=== PATIENT | female | born 1970 | race Caucasian/White ===

== ENCOUNTER 2017-02-26 21:20 | Emergency (ER) | payer SELFPAY ==
--- NOTE | 2017-02-27 00:07 | ED ORDER SUMMARY ---
..... Patient: MAXIME December OrderSheet [facility] VisitID: [id number] [address] [place] [address] 46y, F Registration Date/Time: 02/26/2017 ORDER SHEET Weight: 68.0 kg (stated) Allergies: Sulfa Antibiotics GENERAL ORDERS: MEDICATION ORDERS: Hydrocodone-APAP PO 7.5/325 mg (NOW, HIGH ALERT MEDICATION) (22:31 02/26/2017 Tomas VENCES) (22:34 [facility] Lidocaine Injection 2 % (soln) (NOW, place at bedside) (22:32 02/26/2017 Tomas VENCES) (22:48 Lisette R.N.) IV FLUIDS: ORDER SHEET NOTES: [Electronically signed by Shasha Paula R.N. (00:56 02/27/2017)] [Electronically signed by Rc Miller MD (01:23 02/27/2017)] [Electronically locked/signed by Shasha Paula R.N. (00:56 02/27/2017)]
--- NOTE | 2017-02-27 00:07 | ED CLINICAL REPORT ---
Clinical Report - Physicians/Mid Levels [facility] [address] [place] [address] 02/26/2017 21:22 Patient: MAXIME December Time Seen: 22:05. Arrived- By private vehicle. Historian- patient. HISTORY OF PRESENT ILLNESS Chief Complaint: sore on vulva. This started several days ago and still present and worsening. It was gradual in onset and has been constant. (she has a sore area near her vulva that started as an ingrown hair.). REVIEW OF SYSTEMS No chills, fever, sweats, calf pain or chest pain. No cough, difficulty breathing, pedal edema, palpitations or abdominal pain. No constipation, diarrhea, nausea, vomiting or urinary problems. All systems otherwise negative, except as recorded above. PAST HISTORY Problems: Asthma. Additional Surgeries: Toe reattached. Trigger finger. Medications: Albuterol Sulfate Inhalation. Flonase Nasal. Laratidine. Allergies: Sulfa Antibiotics. SOCIAL HISTORY Never smoker. No alcohol use or drug use. FAMILY HISTORY She has family members that have had MRSA. ADDITIONAL NOTES The nursing notes have been reviewed. PHYSICAL EXAM Vital Signs: 02/26/2017 21:27 BP: 126/69. HR: 91. RR: 16. O2 saturation: 98%. Temp: 98.6 F. Pain level now: 5/10. Have been reviewed. Appearance: Alert. ENT: Pharynx normal. Neck: Neck supple. CVS: Heart sounds normal. Respiratory: Breath sounds normal. Abdomen: Soft and nontender. Bowel sounds normal. No organomegaly. No mass. Back: Normal external inspection. Skin: Single medium abscess with fluctuance and pointing (Extending from the lower part of her mons pubis on the right-hand side to just lateral of the labia majora). 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 Extremities: No lower extremity edema. PROGRESS AND PROCEDURES Incision & Drainage of Abscess: Time-out completed immediately before the procedure. The abscess is located in the labia. The risks of the procedure, benefits and alternatives were explained. Consent was obtained. Local anesthesia provided using 2% lidocaine no epi. Skin cleansed with Betadine. The abscess was incised with a #11 surgical blade. A moderate amount of pus was drained. Cavity was irrigated with saline and packed with gauze. Sample obtained for cultures. A dressing was applied. Course of Care: Patient is stable. Patient/family counseled. Old medical records ordered. Disposition: Discharged. Condition: stable. CLINICAL IMPRESSION Single deep abscess to the genitalia with incision and drainage. INSTRUCTIONS No driving or operating machinery while taking medication. Sedative medication was given during your visit. Drink plenty of fluids. Warnings: Further evaluation is necessary. GENERAL WARNINGS: Return or contact your physician immediately if your condition worsens or changes unexpectedly, if not improving as expected, or if other problems arise. Prescription Medications: Hydrocodone/APAP 5mg/325mg: take 1 to 2 orally every 6 hours as needed for pain. Dispense fifteen (15). No refills. Clindamycin 300 mg: take 1 capsule orally every 6 hours for 10 days. No refill. Understanding of the discharge instructions verbalized by patient. Follow-up with: Coco Chi MD, Family [facility], , [facility], [address] [place] [address] Follow up tomorrow. Call for an appointment. (Electronically signed by Rc Miller MD 02/27/2017 1:23)
--- NOTE | 2017-02-27 00:07 | ED CLINICAL REPORT ---
Clinical Report - Physicians/Mid Levels [facility] [address] [place] [address] 02/26/2017 21:22 Patient: MAXIME December Time Seen: 22:05. Arrived- By private vehicle. Historian- patient. HISTORY OF PRESENT ILLNESS Chief Complaint: sore on vulva. This started several days ago and still present and worsening. It was gradual in onset and has been constant. (she has a sore area near her vulva that started as an ingrown hair.). REVIEW OF SYSTEMS No chills, fever, sweats, calf pain or chest pain. No cough, difficulty breathing, pedal edema, palpitations or abdominal pain. No constipation, diarrhea, nausea, vomiting or urinary problems. All systems otherwise negative, except as recorded above. PAST HISTORY Problems: Asthma. Additional Surgeries: Toe reattached. Trigger finger. Medications: Albuterol Sulfate Inhalation. Flonase Nasal. Laratidine. Allergies: Sulfa Antibiotics. SOCIAL HISTORY Never smoker. No alcohol use or drug use. FAMILY HISTORY She has family members that have had MRSA. ADDITIONAL NOTES The nursing notes have been reviewed. PHYSICAL EXAM Vital Signs: 02/26/2017 21:27 BP: 126/69. HR: 91. RR: 16. O2 saturation: 98%. Temp: 98.6 F. Pain level now: 5/10. Have been reviewed. Appearance: Alert. ENT: Pharynx normal. Neck: Neck supple. CVS: Heart sounds normal. Respiratory: Breath sounds normal. Abdomen: Soft and nontender. Bowel sounds normal. No organomegaly. No mass. Back: Normal external inspection. Skin: Single medium abscess with fluctuance and pointing (Extending from the lower part of her mons pubis on the right-hand side to just lateral of the labia majora). 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 Extremities: No lower extremity edema. PROGRESS AND PROCEDURES Incision & Drainage of Abscess: Time-out completed immediately before the procedure. The abscess is located in the labia. The risks of the procedure, benefits and alternatives were explained. Consent was obtained. Local anesthesia provided using 2% lidocaine no epi. Skin cleansed with Betadine. The abscess was incised with a #11 surgical blade. A moderate amount of pus was drained. Cavity was irrigated with saline and packed with gauze. Sample obtained for cultures. A dressing was applied. Course of Care: Patient is stable. Patient/family counseled. Old medical records ordered. Disposition: Discharged. Condition: stable. CLINICAL IMPRESSION Single deep abscess to the genitalia with incision and drainage. INSTRUCTIONS No driving or operating machinery while taking medication. Sedative medication was given during your visit. Drink plenty of fluids. Warnings: Further evaluation is necessary. GENERAL WARNINGS: Return or contact your physician immediately if your condition worsens or changes unexpectedly, if not improving as expected, or if other problems arise. Prescription Medications: Hydrocodone/APAP 5mg/325mg: take 1 to 2 orally every 6 hours as needed for pain. Dispense fifteen (15). No refills. Clindamycin 300 mg: take 1 capsule orally every 6 hours for 10 days. No refill. Understanding of the discharge instructions verbalized by patient. Follow-up with: Coco Chi MD, Family [facility], , [facility], [address] [place] [address] Follow up tomorrow. Call for an appointment. (Electronically signed by Rc Miller MD 02/27/2017 1:23)
--- NOTE | 2017-02-27 00:07 | ED NURSING NOTES ---
Clinical Report - Nurses [facility] [address] [place] [address] 02/26/2017 21:22 Patient: NEO SWARTZ TRIAGE Triage time 21:Feb 26 2017. Acuity: LEVEL 3. Chief Complaint: VAGINAL LESIONS. Alert. No acute distress. ANGELI COMA SCORE: Angeli Coma Scale: 15- eyes open spontaneously (4); best verbal response- oriented x 4 (5); best motor response- obeys commands (6). --21:34 Lea Grider R.N. 21:27 02/26/17. BP: 126/69. HR: 91. RR: 16. O2 saturation: 98%. Temp: 98.6 F. Pain level now: 510. --21:34 Lea Grider R.N. Weight: 68 kg stated. Height/Length: 62 inches Per Patient. BMI: 27.4. --21:31 Lea Grider R.N. Medications Laratidine. --21:32 Lea Grider R.N. Albuterol Sulfate Inhalation. Flonase Nasal. --21:33 Lea Grider R.N. Allergies Sulfa Antibiotics. --21:33 Lea Grider R.N. History Arrived by private vehicle. Historian: patient. Accompanied by friend. Onset. (about 4 days). 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 PAST MEDICAL HX: Immunizations: status is unknown. SOCIAL HX: Never smoker. No alcohol use or drug use. No infectious disease exposure. SELF HARM ASSESSMENT: A self harm assessment was performed. The patient answered "no" to the question "Do you have thoughts of harming or killing yourself?" and "Have you recently had thoughts about harming or killing others?". FALL RISK ASSESSMENT: Fall risk assessment completed. No fall risk identified. NUTRITIONAL RISK ASSESSMENT: The nutritional risk assessment revealed no deficiencies. FUNCTIONAL ASSESSMENT: Functional assessment: no impairments noted. LEARNING NEEDS ASSESSMENT: The learning needs assessment revealed no barriers. ABUSE ASSESSMENT: Abuse assessment: The patient was asked "Do you feel safe in your home?". SKIN INTEGRITY ASSESSMENT: Skin integrity risk assessment completed. No skin integrity risk identified. --21:34 Lea Grider R.N. PROBLEMS: Asthma. --21:33 Lea Grider R.N. ADDITIONAL SURGERIES: Toe reattached. Trigger finger. --21:33 Lea Grider R.N. Interventions ID and allergy band on patient. To room. --21:34 Lea Grider R.N. PHYSICAL ASSESSMENT Ambulatory to room. GENERAL / NEURO / PSYCH: Alert. Oriented X 4. Appears in no acute distress. HEENT: Mucous membranes are pink. RESPIRATORY: Respirations not labored. CVS: Capillary refill less than 2 seconds. GI / : Abdomen soft and nontender. Tender genital lesions present (abcess). SKIN: Skin is warm and dry. --21:35 Lea Grider R.N. NURSING PROGRESS NOTES Patient gowned. Head of bed elevated. Patient identifiers checked. Call light placed in reach. Side rails up. Bed placed in lowest position. Brakes of bed on. --21:36 Lea Grider R.N. 22:34 02/26/2017 Hydrocodone-APAP (Hydrocodone-Acetaminophen) PO Oral Suspension 15 mL given. Allergies verified, confirmed 5 rights and sedative warning given to the patient. --22:34 Maryan Ball 22:48 02/26/2017 Lidocaine Injection 2 % given. --22:48 Lea Grider R.N. Care transferred and report given (Victorina PANDEY). --23:39 Lea Grider R.N. DISPOSITION / DISCHARGE 00:17 02/27/17. No learning barriers present. Discharge instructions provided and reviewed with the patient and family. Reviewed warnings. Reviewed medication(s). Treatments reviewed. Reviewed referrals. Activity restrictions reviewed. Patient and family verbalized understanding. Written instructions provided in Sami. The patient was discharged home and accompanied by family. She left the Emergency Department ambulatory and via private vehicle. Family member driving. --00:17 Shasha Paula R.N. 00:16 02/27/17. BP: 106/71. HR: 76. RR: 14. O2 saturation: 96%. Temp: deferred. Pain level now: 01/14. --00:17 Shasha Paula R.N. Locked/Released at 02/27/2017 0:56 by Shasha Paula R.N.
--- NOTE | 2017-02-27 00:07 | ED NURSING NOTES ---
Clinical Report - Nurses [facility] [address] [place] [address] 02/26/2017 21:22 Patient: NEO SWARTZ TRIAGE Triage time 21:Feb 26 2017. Acuity: LEVEL 3. Chief Complaint: VAGINAL LESIONS. Alert. No acute distress. ANGELI COMA SCORE: Angeli Coma Scale: 15- eyes open spontaneously (4); best verbal response- oriented x 4 (5); best motor response- obeys commands (6). --21:34 Lea Grider R.N. 21:27 02/26/17. BP: 126/69. HR: 91. RR: 16. O2 saturation: 98%. Temp: 98.6 F. Pain level now: 510. --21:34 Lea Grider R.N. Weight: 68 kg stated. Height/Length: 62 inches Per Patient. BMI: 27.4. --21:31 Lea Grider R.N. Medications Laratidine. --21:32 Lea Grider R.N. Albuterol Sulfate Inhalation. Flonase Nasal. --21:33 Lea Grider R.N. Allergies Sulfa Antibiotics. --21:33 Lea Grider R.N. History Arrived by private vehicle. Historian: patient. Accompanied by friend. Onset. (about 4 days). 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 PAST MEDICAL HX: Immunizations: status is unknown. SOCIAL HX: Never smoker. No alcohol use or drug use. No infectious disease exposure. SELF HARM ASSESSMENT: A self harm assessment was performed. The patient answered "no" to the question "Do you have thoughts of harming or killing yourself?" and "Have you recently had thoughts about harming or killing others?". FALL RISK ASSESSMENT: Fall risk assessment completed. No fall risk identified. NUTRITIONAL RISK ASSESSMENT: The nutritional risk assessment revealed no deficiencies. FUNCTIONAL ASSESSMENT: Functional assessment: no impairments noted. LEARNING NEEDS ASSESSMENT: The learning needs assessment revealed no barriers. ABUSE ASSESSMENT: Abuse assessment: The patient was asked "Do you feel safe in your home?". SKIN INTEGRITY ASSESSMENT: Skin integrity risk assessment completed. No skin integrity risk identified. --21:34 Lea Grider R.N. PROBLEMS: Asthma. --21:33 Lea Grider R.N. ADDITIONAL SURGERIES: Toe reattached. Trigger finger. --21:33 Lea Grider R.N. Interventions ID and allergy band on patient. To room. --21:34 Lea Grider R.N. PHYSICAL ASSESSMENT Ambulatory to room. GENERAL / NEURO / PSYCH: Alert. Oriented X 4. Appears in no acute distress. HEENT: Mucous membranes are pink. RESPIRATORY: Respirations not labored. CVS: Capillary refill less than 2 seconds. GI / : Abdomen soft and nontender. Tender genital lesions present (abcess). SKIN: Skin is warm and dry. --21:35 Lea Grider R.N. NURSING PROGRESS NOTES Patient gowned. Head of bed elevated. Patient identifiers checked. Call light placed in reach. Side rails up. Bed placed in lowest position. Brakes of bed on. --21:36 Lea Grider R.N. 22:34 02/26/2017 Hydrocodone-APAP (Hydrocodone-Acetaminophen) PO Oral Suspension 15 mL given. Allergies verified, confirmed 5 rights and sedative warning given to the patient. --22:34 Maryan Ball 22:48 02/26/2017 Lidocaine Injection 2 % given. --22:48 Lea Grider R.N. Care transferred and report given (Victorina PANDEY). --23:39 Lea Grider R.N. DISPOSITION / DISCHARGE 00:17 02/27/17. No learning barriers present. Discharge instructions provided and reviewed with the patient and family. Reviewed warnings. Reviewed medication(s). Treatments reviewed. Reviewed referrals. Activity restrictions reviewed. Patient and family verbalized understanding. Written instructions provided in Yoruba. The patient was discharged home and accompanied by family. She left the Emergency Department ambulatory and via private vehicle. Family member driving. --00:17 Shasha Paula R.N. 00:16 02/27/17. BP: 106/71. HR: 76. RR: 14. O2 saturation: 96%. Temp: deferred. Pain level now: 01/14. --00:17 Shasha Paula R.N. Locked/Released at 02/27/2017 0:56 by Shasha Paula R.N.
--- NOTE | 2017-02-27 00:07 | ED ORDER SUMMARY ---
..... Patient: MAXIME December OrderSheet [facility] VisitID: [id number] [address] [place] [address] 46y, F Registration Date/Time: 02/26/2017 ORDER SHEET Weight: 68.0 kg (stated) Allergies: Sulfa Antibiotics GENERAL ORDERS: MEDICATION ORDERS: Hydrocodone-APAP PO 7.5/325 mg (NOW, HIGH ALERT MEDICATION) (22:31 02/26/2017 Tomas VENCES) (22:[facility] [place] Lidocaine Injection 2 % (soln) (NOW, place at bedside) (22:32 02/26/2017 Tomas VENCES) (22:48 Lisette R.N.) IV FLUIDS: ORDER SHEET NOTES: [Electronically signed by Shasha Paula R.N. (00:56 02/27/2017)] [Electronically signed by Rc Miller MD (01:23 02/27/2017)] [Electronically locked/signed by Shasha Paula R.N. (00:56 02/27/2017)]
--- NOTE | 2017-02-27 01:23 | ED MAR SUMMARY ---
..... Medication Administration Record [facility] [address] [place] [address] Patient: NEO SWARTZ Visit ID: [id number] 46y, F Weight: 68.0 kg Height/Length: 62 in BMI: 27.4 ALLERGIES: Sulfa Antibiotics Given 22:34 02/26/2017 Maryan Ball, Medication Administered: HYDROCODONE-APAP [PO] (HYDROCODONE-ACETAMINOPHEN), Dose: 15 mL Oral Suspension PO. Medication Ordered: Hydrocodone-APAP PO 7.5/325 mg (NOW, HIGH ALERT MEDICATION). Given 22:48 02/26/2017 Lea Grider R.N. Medication Administered: LIDOCAINE [INJECTION], Dose: 2 % Injection. Medication Ordered: Lidocaine Injection 2 % (soln) (NOW, place at bedside).
--- NOTE | 2017-02-27 01:23 | ED DISCHARGE INSTRUCTIONS ---
Patient: MAXIME December General Instructions [facility] VisitID: [id number] [address] [place] [address] 46y, F Registration Date/Time: 02/26/2017 Single deep abscess to the genitalia with incision and drainage. INSTRUCTIONS No driving or operating machinery while taking medication. Sedative medication was given during your visit. Drink plenty of fluids. Warnings: Further evaluation is necessary. GENERAL WARNINGS: Return or contact your physician immediately if your condition worsens or changes unexpectedly, if not improving as expected, or if other problems arise. Prescription Medications: Hydrocodone/APAP 5mg/325mg: take 1 to 2 orally every 6 hours as needed for pain. Dispense fifteen (15). No refills. Clindamycin 300 mg: take 1 capsule orally every 6 hours for 10 days. No refill. Understanding of the discharge instructions verbalized by patient. Follow-up with: Coco Chi MD, [facility], , [facility], [address] [place] [address] Follow up tomorrow. Call for an appointment. ADDITIONAL INFORMATION Abscess [Incision & Drainage] An abscess (sometimes called a boil) occurs when bacteria get trapped under the skin and begin to grow. Pus forms inside the abscess as the body responds to the bacteria. An abscess can occur with an insect bite, ingrown hair, blocked oil gland, pimple, cyst, or puncture wound. Treatment of your abscess has required an incision to drain the pus. If the abscess pocket was large, a gauze packing may have been inserted. This will need to be removed and possibly replaced on your next visit. Antibiotics are not required in the treatment of a simple abscess, unless the infection is spreading into the skin around the wound (known as cellulitis). Healing of the wound will take about one to two weeks depending on the size of the abscess. Healthy tissue will grow from the bottom and sides of the opening until it seals over. Home Care: The wound may drain for the first two days. Cover the wound with a clean dry dressing. If the dressing becomes soaked with blood or pus, change it. If a gauze packing was placed inside the abscess cavity, you may be advised to remove it yourself. You may do this in the shower. Once the packing is removed, you should wash the area in the shower or bath 3 to 4 times a day, until the skin opening has closed. If you were prescribed antibiotics, take them as directed until they are all gone. You may use acetaminophen (Tylenol) or ibuprofen (Motrin, Advil) to control pain, unless another pain medicine was prescribed. [ NOTE: If you have liver disease or ever had a stomach ulcer, talk with your doctor before using these medicines.] Follow Up with your doctor as advised by our staff. If a gauze packing was inserted in your wound, it should be removed in 1-2 days. Check your wound every day for the signs of worsening infection listed below. Get Prompt Medical Attention if any of the following occur: Increasing redness or swelling Red streaks in the skin leading away from the wound Increasing local pain or swelling Continued pus draining from the wound two days after treatment Fever of 100.4F (38C) or higher, or as directed by your healthcare provider Hydrocodone Bitartrate, Acetaminophen Oral tablet What is this medicine? ACETAMINOPHEN; HYDROCODONE (a set a CHANTAL cielo fen; malinda droe KOE done) is a pain reliever. It is used to treat mild to moderate pain. How should I use this medicine? Take this medicine by mouth. Swallow it with a full glass of water. Follow the directions on the prescription label. If the medicine upsets your stomach, take the medicine with food or milk. Do not take more than you are told to take. Talk to your public health technician regarding the use of this medicine in children. This medicine is not approved for use in children. What side effects may I notice from receiving this medicine? Side effects that you should report to your doctor or health family day carer as soon as possible: allergic reactions like skin rash, itching or hives, swelling of the face, lips, or tongue breathing problems confusion feeling faint or lightheaded, falls stomach pain yellowing of the eyes or skin Side effects that usually do not require medical attention (report to your doctor or health family day carer if they continue or are bothersome): nausea, vomiting stomach upset What may interact with this medicine? alcohol antihistamines isoniazid medicines for depression, anxiety, or psychotic disturbances medicines for sleep muscle relaxants naltrexone narcotic medicines (opiates) for pain phenobarbital ritonavir tramadol What if I miss a dose? If you miss a dose, take it as soon as you can. If it is almost time for your next dose, take only that dose. Do not take double or extra doses. Where should I keep my medicine? Keep out of the reach of children. This medicine can be abused. Keep your medicine in a safe place to protect it from theft. Do not share this medicine with anyone. Selling or giving away this medicine is dangerous and against the law. Store at room temperature between 15 and 30 degrees C (59 and 86 degrees F). Protect from light. Keep container tightly closed. Throw away any unused medicine after the expiration date. Discard unused medicine and used packaging carefully. Pets and children can be harmed if they find used or lost packages. What should I tell my health care provider before I take this medicine? They need to know if you have any of these conditions: brain tumor Crohn's disease, inflammatory bowel disease, or ulcerative colitis drink more than 3 alcohol-containing drinks per day drug abuse or addiction head injury heart or circulation problems kidney disease or problems going to the bathroom liver disease lung disease, asthma, or breathing problems an unusual or allergic reaction to acetaminophen, hydrocodone, other opioid analgesics, other medicines, foods, dyes, or preservatives or trying to get breast-feeding What should I watch for while using this medicine? Tell your doctor or health family day carer if your pain does not go away, if it gets worse, or if you have new or a different type of pain. You may develop tolerance to the medicine. Tolerance means that you will need a higher dose of the medicine for pain relief. Tolerance is normal and is expected if you take the medicine for a long time. Do not suddenly stop taking your medicine because you may develop a severe reaction. Your body becomes used to the medicine. This does NOT mean you are addicted. Addiction is a behavior related to getting and using a drug for a non-medical reason. If you have pain, you have a medical reason to take pain medicine. Your doctor will tell you how much medicine to take. If your doctor wants you to stop the medicine, the dose will be slowly lowered over time to avoid any side effects. You may get drowsy or dizzy when you first start taking the medicine or change doses. Do not drive, use machinery, or do anything that may be dangerous until you know how the medicine affects you. Stand or sit up slowly. There are different types of narcotic medicines (opiates) for pain. If you take more than one type at the same time, you may have more side effects. Give your health care provider a list of all medicines you use. Your doctor will tell you how much medicine to take. Do not take more medicine than directed. Call emergency for help if you have problems breathing. The medicine will cause constipation. Try to have a bowel movement at least every 2 to 3 days. If you do not have a bowel movement for 3 days, call your doctor or health family day carer. Too much acetaminophen can be very dangerous. Do not take Tylenol (acetaminophen) or medicines that contain acetaminophen with this medicine. Many non-prescription medicines contain acetaminophen. Always read the labels carefully. Clindamycin Hydrochloride Oral capsule What is this medicine? CLINDAMYCIN (LJ Lara sin) is a lincosamide antibiotic. It is used to treat certain kinds of bacterial infections. It will not work for colds, flu, or other viral infections. How should I use this medicine? Take this medicine by mouth with a full glass of water. Follow the directions on the prescription label. You can take this medicine with food or on an empty stomach. If the medicine upsets your stomach, take it with food. Take your medicine at regular intervals. Do not take your medicine more often than directed. Take all of your medicine as directed even if you think your are better. Do not skip doses or stop your medicine early. Talk to your public health technician regarding the use of this medicine in children. Special care may be needed. What side effects may I notice from receiving this medicine? Side effects that you should report to your doctor or health family day carer as soon as possible: allergic reactions like skin rash, itching or hives, swelling of the face, lips, or tongue dark urine pain on swallowing redness, blistering, peeling or loosening of the skin, including inside the mouth unusual bleeding or bruising unusually weak or tired yellowing of eyes or skin Side effects that usually do not require medical attention (report to your doctor or health family day carer if they continue or are bothersome): diarrhea itching in the rectal or genital area joint pain nausea, vomiting stomach pain What may interact with this medicine? chloramphenicol erythromycin kaolin products What if I miss a dose? If you miss a dose, take it as soon as you can. If it is almost time for your next dose, take only that dose. Do not take double or extra doses. Where should I keep my medicine? Keep out of the reach of children. Store at room temperature between 20 and 25 degrees C (68 and 77 degrees F). Throw away any unused medicine after the expiration date. What should I tell my health care provider before I take this medicine? They need to know if you have any of these conditions: kidney disease liver disease stomach problems like colitis an unusual or allergic reaction to clindamycin, lincomycin, or other medicines, foods, dyes like tartrazine or preservatives or trying to get breast-feeding What should I watch for while using this medicine? Tell your doctor or healthcare professional if your symptoms do not start to get better or if they get worse. Do not treat diarrhea with over the counter products. Contact your doctor if you have diarrhea that lasts more than 2 days or if it is severe and watery. You have been given the following additional information: Abscess, Incision And Drainage Hydrocodone Bitartrate, Acetaminophen Oral tablet Clindamycin Hydrochloride Oral capsule No driving or operating machinery while taking medication. Sedative medication was given during your visit. (Electronically signed by Rc Miller MD 02/27/2017 1:23)
--- NOTE | 2017-02-27 01:23 | ED MAR SUMMARY ---
..... Medication Administration Record [facility] [address] [place] [address] Patient: NEO SWARTZ Visit ID: [id number] 46y, F Weight: 68.0 kg Height/Length: 62 in BMI: 27.4 ALLERGIES: Sulfa Antibiotics Given 22:34 02/26/2017 Maryan Ball, Medication Administered: HYDROCODONE-APAP [PO] (HYDROCODONE-ACETAMINOPHEN), Dose: 15 mL Oral Suspension PO. Medication Ordered: Hydrocodone-APAP PO 7.5/325 mg (NOW, HIGH ALERT MEDICATION). Given 22:48 02/26/2017 Lea Grider R.N. Medication Administered: LIDOCAINE [INJECTION], Dose: 2 % Injection. Medication Ordered: Lidocaine Injection 2 % (soln) (NOW, place at bedside).
--- NOTE | 2017-02-27 01:23 | ED DISCHARGE INSTRUCTIONS ---
Patient: MAXIME December General Instructions [facility] VisitID: [id number] [address] [place] [address] 46y, F Registration Date/Time: 02/26/2017 Single deep abscess to the genitalia with incision and drainage. INSTRUCTIONS No driving or operating machinery while taking medication. Sedative medication was given during your visit. Drink plenty of fluids. Warnings: Further evaluation is necessary. GENERAL WARNINGS: Return or contact your physician immediately if your condition worsens or changes unexpectedly, if not improving as expected, or if other problems arise. Prescription Medications: Hydrocodone/APAP 5mg/325mg: take 1 to 2 orally every 6 hours as needed for pain. Dispense fifteen (15). No refills. Clindamycin 300 mg: take 1 capsule orally every 6 hours for 10 days. No refill. Understanding of the discharge instructions verbalized by patient. Follow-up with: Coco Chi MD, [facility], , [facility], [address] [place] [address] Follow up tomorrow. Call for an appointment. ADDITIONAL INFORMATION Abscess [Incision & Drainage] An abscess (sometimes called a boil) occurs when bacteria get trapped under the skin and begin to grow. Pus forms inside the abscess as the body responds to the bacteria. An abscess can occur with an insect bite, ingrown hair, blocked oil gland, pimple, cyst, or puncture wound. Treatment of your abscess has required an incision to drain the pus. If the abscess pocket was large, a gauze packing may have been inserted. This will need to be removed and possibly replaced on your next visit. Antibiotics are not required in the treatment of a simple abscess, unless the infection is spreading into the skin around the wound (known as cellulitis). Healing of the wound will take about one to two weeks depending on the size of the abscess. Healthy tissue will grow from the bottom and sides of the opening until it seals over. Home Care: The wound may drain for the first two days. Cover the wound with a clean dry dressing. If the dressing becomes soaked with blood or pus, change it. If a gauze packing was placed inside the abscess cavity, you may be advised to remove it yourself. You may do this in the shower. Once the packing is removed, you should wash the area in the shower or bath 3 to 4 times a day, until the skin opening has closed. If you were prescribed antibiotics, take them as directed until they are all gone. You may use acetaminophen (Tylenol) or ibuprofen (Motrin, Advil) to control pain, unless another pain medicine was prescribed. [ NOTE: If you have liver disease or ever had a stomach ulcer, talk with your doctor before using these medicines.] Follow Up with your doctor as advised by our staff. If a gauze packing was inserted in your wound, it should be removed in 1-2 days. Check your wound every day for the signs of worsening infection listed below. Get Prompt Medical Attention if any of the following occur: Increasing redness or swelling Red streaks in the skin leading away from the wound Increasing local pain or swelling Continued pus draining from the wound two days after treatment Fever of 100.4F (38C) or higher, or as directed by your healthcare provider Hydrocodone Bitartrate, Acetaminophen Oral tablet What is this medicine? ACETAMINOPHEN; HYDROCODONE (a set a CHANTAL cielo fen; malinda droe KOE done) is a pain reliever. It is used to treat mild to moderate pain. How should I use this medicine? Take this medicine by mouth. Swallow it with a full glass of water. Follow the directions on the prescription label. If the medicine upsets your stomach, take the medicine with food or milk. Do not take more than you are told to take. Talk to your vice chancellor regarding the use of this medicine in children. This medicine is not approved for use in children. What side effects may I notice from receiving this medicine? Side effects that you should report to your doctor or health rn transitional care as soon as possible: allergic reactions like skin rash, itching or hives, swelling of the face, lips, or tongue breathing problems confusion feeling faint or lightheaded, falls stomach pain yellowing of the eyes or skin Side effects that usually do not require medical attention (report to your doctor or health rn transitional care if they continue or are bothersome): nausea, vomiting stomach upset What may interact with this medicine? alcohol antihistamines isoniazid medicines for depression, anxiety, or psychotic disturbances medicines for sleep muscle relaxants naltrexone narcotic medicines (opiates) for pain phenobarbital ritonavir tramadol What if I miss a dose? If you miss a dose, take it as soon as you can. If it is almost time for your next dose, take only that dose. Do not take double or extra doses. Where should I keep my medicine? Keep out of the reach of children. This medicine can be abused. Keep your medicine in a safe place to protect it from theft. Do not share this medicine with anyone. Selling or giving away this medicine is dangerous and against the law. Store at room temperature between 15 and 30 degrees C (59 and 86 degrees F). Protect from light. Keep container tightly closed. Throw away any unused medicine after the expiration date. Discard unused medicine and used packaging carefully. Pets and children can be harmed if they find used or lost packages. What should I tell my health care provider before I take this medicine? They need to know if you have any of these conditions: brain tumor Crohn's disease, inflammatory bowel disease, or ulcerative colitis drink more than 3 alcohol-containing drinks per day drug abuse or addiction head injury heart or circulation problems kidney disease or problems going to the bathroom liver disease lung disease, asthma, or breathing problems an unusual or allergic reaction to acetaminophen, hydrocodone, other opioid analgesics, other medicines, foods, dyes, or preservatives or trying to get breast-feeding What should I watch for while using this medicine? Tell your doctor or health rn transitional care if your pain does not go away, if it gets worse, or if you have new or a different type of pain. You may develop tolerance to the medicine. Tolerance means that you will need a higher dose of the medicine for pain relief. Tolerance is normal and is expected if you take the medicine for a long time. Do not suddenly stop taking your medicine because you may develop a severe reaction. Your body becomes used to the medicine. This does NOT mean you are addicted. Addiction is a behavior related to getting and using a drug for a non-medical reason. If you have pain, you have a medical reason to take pain medicine. Your doctor will tell you how much medicine to take. If your doctor wants you to stop the medicine, the dose will be slowly lowered over time to avoid any side effects. You may get drowsy or dizzy when you first start taking the medicine or change doses. Do not drive, use machinery, or do anything that may be dangerous until you know how the medicine affects you. Stand or sit up slowly. There are different types of narcotic medicines (opiates) for pain. If you take more than one type at the same time, you may have more side effects. Give your health care provider a list of all medicines you use. Your doctor will tell you how much medicine to take. Do not take more medicine than directed. Call emergency for help if you have problems breathing. The medicine will cause constipation. Try to have a bowel movement at least every 2 to 3 days. If you do not have a bowel movement for 3 days, call your doctor or health rn transitional care. Too much acetaminophen can be very dangerous. Do not take Tylenol (acetaminophen) or medicines that contain acetaminophen with this medicine. Many non-prescription medicines contain acetaminophen. Always read the labels carefully. Clindamycin Hydrochloride Oral capsule What is this medicine? CLINDAMYCIN (LJ Lara sin) is a lincosamide antibiotic. It is used to treat certain kinds of bacterial infections. It will not work for colds, flu, or other viral infections. How should I use this medicine? Take this medicine by mouth with a full glass of water. Follow the directions on the prescription label. You can take this medicine with food or on an empty stomach. If the medicine upsets your stomach, take it with food. Take your medicine at regular intervals. Do not take your medicine more often than directed. Take all of your medicine as directed even if you think your are better. Do not skip doses or stop your medicine early. Talk to your vice chancellor regarding the use of this medicine in children. Special care may be needed. What side effects may I notice from receiving this medicine? Side effects that you should report to your doctor or health rn transitional care as soon as possible: allergic reactions like skin rash, itching or hives, swelling of the face, lips, or tongue dark urine pain on swallowing redness, blistering, peeling or loosening of the skin, including inside the mouth unusual bleeding or bruising unusually weak or tired yellowing of eyes or skin Side effects that usually do not require medical attention (report to your doctor or health rn transitional care if they continue or are bothersome): diarrhea itching in the rectal or genital area joint pain nausea, vomiting stomach pain What may interact with this medicine? chloramphenicol erythromycin kaolin products What if I miss a dose? If you miss a dose, take it as soon as you can. If it is almost time for your next dose, take only that dose. Do not take double or extra doses. Where should I keep my medicine? Keep out of the reach of children. Store at room temperature between 20 and 25 degrees C (68 and 77 degrees F). Throw away any unused medicine after the expiration date. What should I tell my health care provider before I take this medicine? They need to know if you have any of these conditions: kidney disease liver disease stomach problems like colitis an unusual or allergic reaction to clindamycin, lincomycin, or other medicines, foods, dyes like tartrazine or preservatives or trying to get breast-feeding What should I watch for while using this medicine? Tell your doctor or healthcare professional if your symptoms do not start to get better or if they get worse. Do not treat diarrhea with over the counter products. Contact your doctor if you have diarrhea that lasts more than 2 days or if it is severe and watery. You have been given the following additional information: Abscess, Incision And Drainage Hydrocodone Bitartrate, Acetaminophen Oral tablet Clindamycin Hydrochloride Oral capsule No driving or operating machinery while taking medication. Sedative medication was given during your visit. (Electronically signed by Rc Miller MD 02/27/2017 1:23)
--- NOTE | 2017-02-27 01:23 | ED MED RECONCILIATION SUMMARY ---
Patient: MAXIME December Medication Reconciliation Report [facility] VisitID: [id number] [address] [place] [address] 46y, F Registration Date/Time: 02/26/2017 Weight: 68.0 kg Height/Length: 62 in. BMI: 27.4 ALLERGIES: Sulfa Antibiotics The patient's Home Medications are listed below: THE FOLLOWING MEDICATIONS NEED TO BE RECONCILED: Albuterol Sulfate Inhalation Flonase Nasal Laratidine The source(s) of the original Home Medication information: Not obtained. The following Medications were given to the patient in the Emergency Department: Hydrocodone-APAP [PO] PO 15 mL, administered: 02/26/2017 10:34:00 PM Lidocaine [Injection] Injection 2 %, administered: 02/26/2017 10:48:00 PM The following Medications were prescribed to the patient: Hydrocodone/APAP 5mg/325mg: take 1 to 2 orally every 6 hours as needed for pain. Dispense fifteen (15). No refills. -- Rc Miller MD Clindamycin 300 mg: take 1 capsule orally every 6 hours for 10 days. No refill. -- Rc Miller MD
--- NOTE | 2017-02-27 01:23 | ED MED RECONCILIATION SUMMARY ---
Patient: MAXIME December Medication Reconciliation Report [facility] VisitID: [id number] [address] [place] [address] 46y, F Registration Date/Time: 02/26/2017 Weight: 68.0 kg Height/Length: 62 in. BMI: 27.4 ALLERGIES: Sulfa Antibiotics The patient's Home Medications are listed below: THE FOLLOWING MEDICATIONS NEED TO BE RECONCILED: Albuterol Sulfate Inhalation Flonase Nasal Laratidine The source(s) of the original Home Medication information: Not obtained. The following Medications were given to the patient in the Emergency Department: Hydrocodone-APAP [PO] PO 15 mL, administered: 02/26/2017 10:34:00 PM Lidocaine [Injection] Injection 2 %, administered: 02/26/2017 10:48:00 PM The following Medications were prescribed to the patient: Hydrocodone/APAP 5mg/325mg: take 1 to 2 orally every 6 hours as needed for pain. Dispense fifteen (15). No refills. -- Rc Miller MD Clindamycin 300 mg: take 1 capsule orally every 6 hours for 10 days. No refill. -- Rc Miller MD
[2017-02-28] MEDS ORDERED: ALBUTEROL HFA60 DOSE IN (16:33)
[2017-02-28] MEDS ORDERED: CLEOCIN300 MG PO (16:35)
[2017-02-28] MEDS ORDERED: FLONASE AL50 MCG/ACT IN (16:36)
[2017-02-28] MEDS ORDERED: CLARITIN5 MG PO (16:37)
[2017-02-28] MEDS ORDERED: NORCO1 TA1 PO (16:38)
[2017-02-28] MEDS ORDERED: DIPHENHYDRAMINE25 M1 PO (16:39)
== END 2017-02-27 00:18 | disposition home or self-care (01) ==
LOC: ED SRH 21:20
DX: N76.4 Abscess of vulva (principal); Z79.899 Other long term (current) drug therapy; Z88.2 Allergy status to sulfonamides; J45.909 Unspecified asthma, uncomplicated

== ENCOUNTER 2017-02-28 10:05 | Observation (INO) | payer SELFPAY ==
[~2017-02-28] VITALS: Ht 157.5 cm; Wt 71.1 kg
--- NOTE | 2017-02-28 13:14 | ED NURSING NOTES ---
Clinical Report - Nurses [facility] [address] [place] [address] 02/28/2017 10:05 Patient: MAXIME December TRIAGE Triage time 10:16. Acuity: LEVEL 3. Chief Complaint: RECHECK OF WOUND. Alert. No acute distress. IAM COMA SCORE: Josephine Coma Scale: 15- eyes open spontaneously (4); best verbal response- oriented x 4 (5); best motor response- obeys commands (6). --10:21 Mindi De La Cruz R.N. 10:16 02/28/17. BP: 91/50. HR: 86. RR: 18. O2 saturation: 100%. Temp: 98.1 F (oral). Pain level now: 5/10. --10:21 Mindi De La Cruz R.N. Weight: 68 kg stated. Height/Length: 62 inches Per Patient. BMI: 27.4. --10:18 Mindi De La Cruz R.N. Medications Albuterol Sulfate Inhalation. Flonase Nasal. --10:17 Mindi De La Cruz R.N. Loratadine Oral. --10:17 Mindi De La Cruz R.N. Clindamycin HCl Oral 300 mg, 4x a day, started 02/26/17. --10:29 Mindi De La Cruz R.N. Vicodin Oral. --10:31 Mindi De La Cruz R.N. Medication/allergy information source: the patient. --10:21 Mindi De La Cruz R.N. Allergies Sulfa Antibiotics. --10:17 Mindi De La Cruz R.N. History Arrived by private vehicle. Historian: patient. Accompanied by friend. Primary physician (Arti). Location: (perineum). Previous treatment: Previously seen in ED two days ago. Incision and drainage of abscess performed. Antibiotic given in ED. PAST MEDICAL HX: Last normal menstrual period now. SOCIAL HX: Former smoker. No alcohol use or drug use. FALL RISK ASSESSMENT: Fall risk assessment completed. No fall risk identified. FUNCTIONAL ASSESSMENT: Functional assessment: no impairments noted. LEARNING NEEDS ASSESSMENT: The learning needs assessment revealed no barriers. --10:21 Mindi De La Cruz R.N. PROBLEMS: Abscess. Asthma. --10:18 Mindi De La Cruz R.N. ADDITIONAL SURGERIES: Toe reattached. Trigger finger. --10:18 Mindi De La Cruz R.N. Assessment GENERAL / NEURO / PSYCH: Alert. Oriented X 4. Appears in no acute distress. Patient appears calm and cooperative. RESPIRATORY: Respirations not labored. SKIN: Skin is warm and dry. --10:21 Mindi De La Cruz R.N. Interventions ID and allergy band on patient. To treatment room. --10:21 Mindi De La Cruz R.N. PHYSICAL ASSESSMENT 10:02/28/17. Ambulatory to room. Patient gowned. GENERAL / NEURO / PSYCH: The patient is awake and alert, is oriented and cooperative and appears uncomfortable. She has good eye contact. SKIN: Skin is warm and dry. --10:26 Mindi De La Cruz R.N. NURSING PROGRESS NOTES 10:02/28/17. Patient gowned. Call light placed in reach. Side rails up x 1. Bed placed in lowest position. Brakes of bed on. --10:26 Mindi De La Cruz R.N. 10:27 warm blanket and an ice pack given. --10:27 Mindi De La Cruz R.N. 11:56 02/28/2017 Site #1 started via IV in the left antecubital space with an 20g angiocath, with aseptic technique and good blood return; one attempt. Blood drawn: rainbow set. Labeled in the presence of the patient and sent to the lab. --11:56 Mindi De La Cruz R.N. 11:57 02/28/2017 Started bag #1 1000 mL IV Fluids IV NS (Saline); at 1000 mL/hr over 1 hour(s) via site #1 --11:57 Mindi De La Cruz R.N. 11:57 02/28/2017 Morphine IVP 4 mg given. via site #1. Allergies verified, confirmed 5 rights and sedative warning given to the patient. IV patency established. IV site checked: no pain, redness, or swelling. IV flushed thoroughly pre- and post-medication administration. IVP given by RN. --11:57 Mindi De La Cruz R.N. 12:19 02/28/17. Reassessment after medication administered. Overall patient status is improved- she states feels better. --12:20 Mindi De La Cruz R.N. 12:52 02/28/2017 Morphine IVP 4 mg given over 2 minute(s) via site #1. Allergies verified, confirmed 5 rights and sedative warning given to the patient. IV patency established. IV site checked: no pain, redness, or swelling. IV flushed thoroughly pre- and post-medication administration. IVP given by RN. --12:52 Mindi De La Cruz R.N. 14:57 02/28/17. BP: 104/68. HR: 76. RR: 18. O2 saturation: 98%. Temp: 98.6 F. Pain level now 8/10. --14:59 Crow Le R.N. 15:22 02/28/2017 Started 1 gm of Vancomycin IVPB in bag #1 200 mL; at 200 mL/hr over 1 hour(s) via site #1 via IV pump. Allergies verified and confirmed 5 rights. IV patency established. IV site checked: no pain, redness, or swelling. IV flushed thoroughly pre- and post-medication administration. --15:22 Crow Le R.N. DISPOSITION / DISCHARGE Departure time: 15:34 Feb 28 2017. Admitted to the Critical Care Unit (302). ( Report given to Sparkle VILLEGAS). --15:34 Crow Le R.N. 14:57 02/28/17. BP: 104/68. HR: 76. RR: 18. O2 saturation: 98%. Temp: 98.6 F. Pain level now 8/10. --15:34 Crow Le R.N. 13:38 02/28/2017 IV Fluids IV NS Discontinued: bag #1 infused. Total amount infused: 46275 mL. IV patency established. IV site checked: no pain, redness, or swelling. IV flushed thoroughly. --15:38 Crow Le R.N. 15:36 02/28/2017 Site #[address] upon transfer; patent. Converted to saline lock and flushed with 10 mL saline. --15:36 Crow Le R.N. 15:53 02/28/2017 Vancomycin IVPB Continued: upon transfer at the rate of 200 mL/hr. 190 mL remaining bag #1. IV patency established. IV site checked: no pain, redness, or swelling. IV flushed thoroughly. --15:53 Crow Le R.N. Departure time: 15:53 Feb 28 2017. --15:53 Crow Le R.N. Locked/Released at 02/28/2017 15:54 by Crow Le R.N.
--- NOTE | 2017-02-28 13:14 | ED ORDER SUMMARY ---
..... Patient: MAXIMEDecember OrderSheet [facility] VisitID: [id number] [place] [address] 46y, F Registration Date/Time: 02/28/2017 ORDER SHEET Weight: 68.0 kg (stated) Allergies: Sulfa Antibiotics GENERAL ORDERS: CBC w Diff Urgent (11:02/28/2017 Michele Bonds) (Ack 11:16 Chelo) (11:56 Fredi R.N.) CMP Urgent (11:02/28/2017 Michele Bonds) (Ack 11:16 Chelo) (11:56 Fredi R.N.) Blood Culture (Yes) (Clindamycin) Urgent (15:02/28/2017 Michele Bonds) (Ack 15:35 Chelo) (15:53 LWhalen R.N.) UA-Culture if indicated Urgent (15:02/28/2017 Michele Bonds) (Ack 15:35 Chelo) (15:53 LWhalen R.N.) Urine Urgent (15:02/28/2017 Michele Bonds) (Ack 15:35 Chelo) (15:53 LWhalen R.N.) MEDICATION ORDERS: IV FLUIDS: IV NS : initial bolus none -, then 1000 mL/hr for X1 (NOW) (11:12 02/28/2017 Michele Bonds) (Ack 11:32 Fredi R.N.) (11:57 Fredi R.N.) Morphine IV 4 mg (HIGH ALERT MEDICATION, NOW) (11:12 02/28/2017 Michele Bonds) (Ack 11:32 Fredi R.N.) (11:57 Fredi R.N.) Morphine IV 4 mg (HIGH ALERT MEDICATION, NOW) (12:29 02/28/2017 Michele Bonds) (Ack 12:44 Fredi R.N.) (12:52 Fredi R.N.) Vancomycin IV 1 gm/200mL (NOW) (14:58 02/28/2017 Michele Bonds) (15:22 LWhalen R.N.) ORDER SHEET NOTES: [Electronically signed by Crow Le R.N. (15:54 02/28/2017)] [Electronically signed by Edgar Chaudhari Dr. (15:56 02/28/2017)] [Electronically locked/signed by Crow Le R.N. (15:54 02/28/2017)]
--- NOTE | 2017-02-28 13:14 | ED ORDER SUMMARY ---
..... Patient: MAXIMEDecember OrderSheet [facility] VisitID: [id number] [place] [address] 46y, F Registration Date/Time: 02/28/2017 ORDER SHEET Weight: 68.0 kg (stated) Allergies: Sulfa Antibiotics GENERAL ORDERS: CBC w Diff Urgent (11:02/28/2017 Michele Bonds) (Ack 11:16 Chelo) (11:56 Fredi R.N.) CMP Urgent (11:02/28/2017 Michele Bonds) (Ack 11:16 Chelo) (11:56 Fredi R.N.) Blood Culture (Yes) (Clindamycin) Urgent (15:02/28/2017 Michele Bonds) (Ack 15:35 Chelo) (15:53 LWhalen R.N.) UA-Culture if indicated Urgent (15:02/28/2017 Michele Bonds) (Ack 15:35 Chelo) (15:53 LWhalen R.N.) Urine Urgent (15:02/28/2017 Michele Bonds) (Ack 15:35 Chelo) (15:53 LWhalen R.N.) MEDICATION ORDERS: IV FLUIDS: IV NS : initial bolus none -, then 1000 mL/hr for X1 (NOW) (11:12 02/28/2017 Michele Bonds) (Ack 11:32 Fredi R.N.) (11:57 Fredi R.N.) Morphine IV 4 mg (HIGH ALERT MEDICATION, NOW) (11:12 02/28/2017 Michele Bonds) (Ack 11:32 Fredi R.N.) (11:57 Fredi R.N.) Morphine IV 4 mg (HIGH ALERT MEDICATION, NOW) (12:29 02/28/2017 Michele Bonds) (Ack 12:44 Fredi R.N.) (12:52 Fredi R.N.) Vancomycin IV 1 gm/200mL (NOW) (14:58 02/28/2017 Michele Bonds) (15:22 LWhalen R.N.) ORDER SHEET NOTES: [Electronically signed by Crow Le R.N. (15:54 02/28/2017)] [Electronically signed by Edgar Chaudhari Dr. (15:56 02/28/2017)] [Electronically locked/signed by Crow Le R.N. (15:54 02/28/2017)]
--- NOTE | 2017-02-28 13:14 | ED CLINICAL REPORT ---
Clinical Report - Physicians/Mid Levels [facility] [address] [place] [address] 02/28/2017 10:05 Patient: MAXIME December Time Seen: 10:15; initial patient contact. CPT: ER phys charges level 5 (#[id number]). HISTORY OF PRESENT ILLNESS Chief Complaint: ABSCESS RECHECK. Treated in emergency department two days ago. Previous emergency department treatment: Incision and Drainage of abscess and prescription antibiotic given. No prescription given. The patient has experienced fever, chills and redness since the procedure was performed. (Was packed 2 days ago, worsening as far as induration, erythema, and pain). REVIEW OF SYSTEMS The patient has had fever. No nausea or vomiting. All systems otherwise negative, except as recorded above. PAST HISTORY Abscess. Asthma. SURGERIES: Toe reattached. Trigger finger. Medications: Vicodin Oral. Clindamycin HCl Oral 300 mg, 4x a day, started 02/26/17. Loratadine Oral. Albuterol Sulfate Inhalation. Flonase Nasal. Allergies: Sulfa Antibiotics. SOCIAL HISTORY Former smoker. No alcohol use or drug use. ADDITIONAL NOTES The nursing notes have been reviewed. PHYSICAL EXAM Vital Signs: 02/28/2017 10:16 BP: 91/50. HR: 86. RR: 18. O2 saturation: 100%. Temp: 98.1 F. Pain level now: 5/10. Have been reviewed. Hypotensive. Heart rate normal. Respiratory rate normal. Temperature normal. Oxygen saturation normal. Appearance: Alert. Oriented X3. No acute distress. Eyes: Pupils equal, round and reactive to light. ENT: Pharynx normal. Neck: Neck nontender. CVS: Heart sounds normal. Rate normal. Rhythm normal. Respiratory: No respiratory distress. Breath sounds normal. Abdomen: Soft and nontender. Skin: Erythema. Medium area of cellulitis with tenderness, erythema and warmth to the abdomen (Mons). Tenderness. Warmth. Moderate purulent drainage present. (8 cm induration). Neuro: Oriented X 3. LABS, X-RAYS, AND EKG Lt Knee X-ray: Moderate degenerative joint disease. Views: 2 view knee series. Technique: good. The X-rays were independently viewed by me and interpreted contemporaneously by me. Prior films were not available for comparison. PROGRESS AND PROCEDURES Discussed case with on-call health care provider, (Dr. Baugh, admit to hospitalist and will consult). Discussed case with hospitalist, (call returned 14:52 Dr. Lara, will see pt.). CLINICAL IMPRESSION Single deep abscess to the abdominal wall. INSTRUCTIONS Follow-up: Screening today revealed the patient's blood pressure to be in the normal range. (Electronically signed by Edgar Chaudhari Dr. 02/28/2017 15:56)
--- NOTE | 2017-02-28 13:14 | ED CLINICAL REPORT ---
Clinical Report - Physicians/Mid Levels [facility] [address] [place] [address] 02/28/2017 10:05 Patient: MAXIME December Time Seen: 10:15; initial patient contact. CPT: ER phys charges level 5 (#[id number]). HISTORY OF PRESENT ILLNESS Chief Complaint: ABSCESS RECHECK. Treated in emergency department two days ago. Previous emergency department treatment: Incision and Drainage of abscess and prescription antibiotic given. No prescription given. The patient has experienced fever, chills and redness since the procedure was performed. (Was packed 2 days ago, worsening as far as induration, erythema, and pain). REVIEW OF SYSTEMS The patient has had fever. No nausea or vomiting. All systems otherwise negative, except as recorded above. PAST HISTORY Abscess. Asthma. SURGERIES: Toe reattached. Trigger finger. Medications: Vicodin Oral. Clindamycin HCl Oral 300 mg, 4x a day, started 02/26/17. Loratadine Oral. Albuterol Sulfate Inhalation. Flonase Nasal. Allergies: Sulfa Antibiotics. SOCIAL HISTORY Former smoker. No alcohol use or drug use. ADDITIONAL NOTES The nursing notes have been reviewed. PHYSICAL EXAM Vital Signs: 02/28/2017 10:16 BP: 91/50. HR: 86. RR: 18. O2 saturation: 100%. Temp: 98.1 F. Pain level now: 5/10. Have been reviewed. Hypotensive. Heart rate normal. Respiratory rate normal. Temperature normal. Oxygen saturation normal. Appearance: Alert. Oriented X3. No acute distress. Eyes: Pupils equal, round and reactive to light. ENT: Pharynx normal. Neck: Neck nontender. CVS: Heart sounds normal. Rate normal. Rhythm normal. Respiratory: No respiratory distress. Breath sounds normal. Abdomen: Soft and nontender. Skin: Erythema. Medium area of cellulitis with tenderness, erythema and warmth to the abdomen (Mons). Tenderness. Warmth. Moderate purulent drainage present. (8 cm induration). Neuro: Oriented X 3. LABS, X-RAYS, AND EKG Lt Knee X-ray: Moderate degenerative joint disease. Views: 2 view knee series. Technique: good. The X-rays were independently viewed by me and interpreted contemporaneously by me. Prior films were not available for comparison. PROGRESS AND PROCEDURES Discussed case with on-call health care provider, (Dr. Baugh, admit to hospitalist and will consult). Discussed case with hospitalist, (call returned 14:52 Dr. Lara, will see pt.). CLINICAL IMPRESSION Single deep abscess to the abdominal wall. INSTRUCTIONS Follow-up: Screening today revealed the patient's blood pressure to be in the normal range. (Electronically signed by Edgar Chaudhari Dr. 02/28/2017 15:56)
--- NOTE | 2017-02-28 15:56 | ED MAR SUMMARY ---
..... Medication Administration Record [facility] [address] [place] [place] [address] Patient: NEO SWARTZ Visit ID: [id number] 46y, F Weight: 68.0 kg Height/Length: 62 in BMI: 27.4 ALLERGIES: Sulfa Antibiotics Start 11:57 02/28/2017 Mindi De La Cruz R.N., Stop 13:38 02/28/2017 Crow Le R.N. Medication Administered: IV NS (SALINE), Dose: IV Fluids over 1 hour(s), Rate: 1000 mL/hr, Dispensed: 1000 mL bag, Site: #1 left AC. Medication Ordered: IV NS : initial bolus none -, then 1000 mL/hr for X1 (NOW). Given 11:57 02/28/2017 Mindi De La Cruz R.N. Medication Administered: MORPHINE [IVP], Dose: 4 mg IVP, Site: #1 left AC. Medication Ordered: Morphine IV 4 mg (HIGH ALERT MEDICATION, NOW). Given 12:52 02/28/2017 Mindi De La Cruz R.N. Medication Administered: MORPHINE [IVP], Dose: 4 mg IVP over 2 minute(s), Site: #1 left AC. Medication Ordered: Morphine IV 4 mg (HIGH ALERT MEDICATION, NOW). Start 15:22 02/28/2017 Crow Le R.N., Continued Upon Transfer 15:53 02/28/2017 Crow Le R.N. Medication Administered: VANCOMYCIN [IVPB], Dose: 1 gm IVPB over 1 hour(s), Rate: 200 mL/hr, Dispensed: 200 mL bag, Site: #1 left AC. Medication Ordered: Vancomycin IV 1 gm/200mL (NOW).
--- NOTE | 2017-02-28 15:56 | ED MAR SUMMARY ---
..... Medication Administration Record [facility] [address] [place] [address] Patient: NEO SWARTZ Visit ID: [id number] 46y, F Weight: 68.0 kg Height/Length: 62 in BMI: 27.4 ALLERGIES: Sulfa Antibiotics Start 11:57 02/28/2017 Mindi De La Cruz R.N., Stop 13:38 02/28/2017 Crow Le R.N. Medication Administered: IV NS (SALINE), Dose: IV Fluids over 1 hour(s), Rate: 1000 mL/hr, Dispensed: 1000 mL bag, Site: #1 left AC. Medication Ordered: IV NS : initial bolus none -, then 1000 mL/hr for X1 (NOW). Given 11:57 02/28/2017 Mindi De La Cruz R.N. Medication Administered: MORPHINE [IVP], Dose: 4 mg IVP, Site: #1 left AC. Medication Ordered: Morphine IV 4 mg (HIGH ALERT MEDICATION, NOW). Given 12:52 02/28/2017 Mindi De La Cruz R.N. Medication Administered: MORPHINE [IVP], Dose: 4 mg IVP over 2 minute(s), Site: #1 left AC. Medication Ordered: Morphine IV 4 mg (HIGH ALERT MEDICATION, NOW). Start 15:22 02/28/2017 Crow Le R.N., Continued Upon Transfer 15:53 02/28/2017 Crow Le R.N. Medication Administered: VANCOMYCIN [IVPB], Dose: 1 gm IVPB over 1 hour(s), Rate: 200 mL/hr, Dispensed: 200 mL bag, Site: #1 left AC. Medication Ordered: Vancomycin IV 1 gm/200mL (NOW).
--- NOTE | 2017-02-28 15:56 | ED MED RECONCILIATION SUMMARY ---
Patient: MAXIME December Medication Reconciliation Report [facility] VisitID: [id number] [address] [place] [address] 46y, F Registration Date/Time: 02/28/2017 Weight: 68.0 kg Height/Length: 62 in. BMI: 27.4 ALLERGIES: Sulfa Antibiotics The patient's Home Medications are listed below: THE FOLLOWING MEDICATIONS NEED TO BE RECONCILED: Albuterol Sulfate Inhalation Clindamycin HCl Oral 300 mg, 4x a day Flonase Nasal Loratadine Oral Vicodin Oral The source(s) of the original Home Medication information: patient The following Medications were given to the patient in the Emergency Department: IV NS IV Fluids bolus 0, then 1000 mL/hr, administered: 02/28/2017 11:57:00 AM Morphine [IVP] IVP 4 mg, administered: 02/28/2017 11:57:00 AM Morphine [IVP] IVP 4 mg, administered: 02/28/2017 12:52:00 PM Vancomycin [IVPB] IVPB bolus 0, then 1 gm 200 mL/hr, administered: 02/28/2017 3:22:00 PM The following Medications were prescribed to the patient: None.
--- NOTE | 2017-02-28 15:56 | ED MED RECONCILIATION SUMMARY ---
Patient: MAXIME December Medication Reconciliation Report [facility] VisitID: [id number] [address] [place] [address] 46y, F Registration Date/Time: 02/28/2017 Weight: 68.0 kg Height/Length: 62 in. BMI: 27.4 ALLERGIES: Sulfa Antibiotics The patient's Home Medications are listed below: THE FOLLOWING MEDICATIONS NEED TO BE RECONCILED: Albuterol Sulfate Inhalation Clindamycin HCl Oral 300 mg, 4x a day Flonase Nasal Loratadine Oral Vicodin Oral The source(s) of the original Home Medication information: patient The following Medications were given to the patient in the Emergency Department: IV NS IV Fluids bolus 0, then 1000 mL/hr, administered: 02/28/2017 11:57:00 AM Morphine [IVP] IVP 4 mg, administered: 02/28/2017 11:57:00 AM Morphine [IVP] IVP 4 mg, administered: 02/28/2017 12:52:00 PM Vancomycin [IVPB] IVPB bolus 0, then 1 gm 200 mL/hr, administered: 02/28/2017 3:22:00 PM The following Medications were prescribed to the patient: None.
--- NOTE | 2017-02-28 15:56 | ED DISCHARGE INSTRUCTIONS ---
Patient: MAXIMEDecember General Instructions [facility] VisitID: [id number] [address] [place] [address] 46y, F Registration Date/Time: 02/28/2017 Single deep abscess to the abdominal wall. INSTRUCTIONS Follow-up: Screening today revealed the patient's blood pressure to be in the normal range. (Electronically signed by Edgar Chaudhari Dr. 02/28/2017 15:56)
--- NOTE | 2017-02-28 15:56 | ED DISCHARGE INSTRUCTIONS ---
Patient: MAXIMEDecember General Instructions [facility] VisitID: [id number] [address] [place] [address] 46y, F Registration Date/Time: 02/28/2017 Single deep abscess to the abdominal wall. INSTRUCTIONS Follow-up: Screening today revealed the patient's blood pressure to be in the normal range. (Electronically signed by Edgar Chaudhari Dr. 02/28/2017 15:56)
[2017-02-28 16:05] VITALS: BP 111/67
--- NOTE | 2017-02-28 16:11 | Progress Note ---
Subjective General Admission History and Physical Examination Admission status: ACU. Observation Patient Name: Daysi Mims Admission Date: 02/28/2017 Primary Care Provider: Coco Chi Attending Physician:Toro Lara M.D. Admitting Physician:Toro Lara MD Code Status: full Code Room: SUBJECTIVE Historian: Patient Reliability: Good Chief Complaint: Supra-pubic History of Present Illness: he patient is a 46-year-old white female with a significant past medical history of exercise-induced asthma. and general seasonal allergies, who presented to [facility] emergency department on the day of admission with continued complaints of pain in the suprapubic region related to previously treated abscess. She reports that overnight she had fevers, low-grade 99.7. She took naproxen 1 with reduction in her fever. Patient said ongoing complains of pain in the suprapubic region since Thursday02/23/2017. Patient states that on that day she noted a small papule in the suprapubic region. This was painful and red. Patient states that she was seen at the [facility] ED on the (02/26/17) when it began to worsen. Patient reported that the lesion was lanced and patient was placed on a oral antibiotic called clindamycin. The pain control was encouraged; patient started on hydrocodone/ acetaminophen. Patient today reported of worsening pain and swelling in the region. Patient has redness in the suprapubic region that extends to the pelvis and inner thigh. Patient also reports a worsening drainage from the original lesion that was treated more than 2 days ago. Patient was seen by [facility] ED who recommended patient be seen by general surgery and also admitted to hospitalist. Secondary to the above, the patient was admitted by Toro Lara M.D. for further evaluation and treatment. PAST MEDICAL HISTORY Illnesses: 1. Exercise-induced asthma 2. Seasonal allergies Allergies: 1. Sulfa drugs 2. Avocado eggs, bananas 2. Seasonal allergies to grass and pollens. Medications: 1. Currently started clindamycin 300 mg 4 times per day for recent abscess formation. 2. Hydrocodone acetaminophen 5 mg to 325 every 6 hours as needed. Surgery: 1. Trigger finger, April 2014 2. Sever toe on the left foot, which was repaired Injuries: 1. Left foot injury Hospitalizations: 1. None FAMILY HISTORY Parents: 1. Father, Sandro, age 61, living with thyroid disease, 2. Mother, Laura age 59; m living diabetic Siblings: 1. Agueda Mcallister age 42, Sundar age 40, Elsy age 38 Children: 1. 3 healthy children Andrew 19 lives at home Ronaldo Ochoa age 29 Janet Ochoa age 26 POA SOCIAL HISTORY 1. Marital Status: 2 years 2. Catholic: None 3. Education: High school 2 years college completed AA degree 4. 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 Tobacco: Smoking history 30 years, one half pack per day. Stop smoking. September,. 2. Drugs: None 3. Alcohol: None 4. Caffeine: None HEALTH SUPERVISION Item/Test 1. Vision screen: vision 2. Cholesterol Profile: chol 3. PSA: PSA 4. DOROTHEA: DOROTHEA 5. FOBT: FOBT 6. Blood Glucose: May 2015; [facility] 7. Colonoscopy: colonoscopy 8. History and physical exam: H&P 9. Audiogram: 2016 10. Mammogram: April 2015 [facility] 11. Pap/pelvic exam: April 2015 [facility] IMMUNIZATIONS: Unknown 1. Pneumococcal: Unknown 2. Influenza: Unknown 3. Tetanus: Unknown ADVANCED DIRECTIVES: 1. Living well: None 2. POLST: None 3. Code Status: FULL CODE STATUS 4. 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 Donor card: Donor card yes REVIEW OF SYSTEMS Remarkable for those things stated in the history of present illness and past medical history. ROS Constitutional Fever. Denies: Chills, Sweats. Eyes Denies: Vision Change. Respiratory Denies: SOB w/exertion. Cardiovascular Denies: Palpitations. Musculoskeletal Denies: Back Pain. Skin Other (abscess, suprapubic). Physical Exam Vital Signs / I&Os Vital Signs Date Time Temp Pulse Resp B/P Pulse O2 O2 Flow FiO2 Ox Delivery Rate 02/28 1605 98.4 66 16 111/67 100 Room Air General Appearance Oriented X3, Cooperative, No acute distress HEENT EOMI Lungs Clear to auscultation Cardiovascular Regular rate and rhythm, Normal S1 and S2 Abdomen Soft, No tenderness Extremities No clubbing, No edema Skin abscess, suprapubic with single exit point with drainage, pus. Tenderness around the mons pubis, fluctuance approximately 3 cm superior to the mons into the groin. Edematous changes Suprapubic. , LAB Results Laboratory Tests 02/28 02/28 1145 1145 Chemistry Plasma Sodium (136 - 145 mmol/L) 137 Plasma Potassium (3.5 - 5.1 mmol/L) 4.1 Plasma Chloride (98 - 107 mmol/L) 103 CO2 (Enzymatic) (21 - 32 mmol/L) 29 BUN (7 - 18 mg/dL) 14 Creatinine (0.6 - 1.3 mg/dL) 0.8 Est GFR ( Amer) (mL/min) >60 Est GFR (Non-Af Amer) (mL/min) >60 Glucose (70 - 110 mg/dL) 91 Plasma Calcium (8.5 - 10.1 mg/dL) 8.7 Total Bilirubin (0.0 - 1.0 mg/dL) 0.7 AST (15 - 37 U/L) 15 ALT (12 - 78 U/L) 18 Alkaline Phosphatase (46 - 116 U/L) 67 C-Reactive Protein Pending Total Protein (6.4 - 8.2 g/dL) 7.1 Albumin (3.3 - 5.0 g/dL) 3.4 Hematology WBC (4.5 - 11.5 K/uL) 8.5 RBC (4.00 - 5.20 M/uL) 3.96 Hgb (12.0 - 16.0 gm/dL) 12.1 Hct (36.0 - 46.0 %) 36.6 MCV (80 - 100 fL) 93 MCH (26 - 34 pg) 31 RDW (11.6 - 14.8 %) 13.2 Neut % (Auto) (50 - 75 %) 75.2 Lymph % (Auto) (25 - 40 %) 14.4 Real % (Auto) (3 - 14 %) 7.1 Eos % (Auto) (0 - 4 %) 2.7 Baso % (Auto) (0 - 2 %) 0.6 Plt Count, EDTA (150 - 400 K/uL) 284 PUBS MCHC (31 - 37 g/dL) 33 Microbiology Date/Time Procedure - Status Source Growth 02/28 1544 Blood Culture - RECD BLOOD 02/28 1543 Superficial Wound Culture - ORD DRAINAGE 02/28 1543 Gram Stain - ORD DRAINAGE 02/28 1543 Gram Stain - ORD MISC 02/28 1540 Blood Culture - RECD BLOOD 02/28 UNK MRSA Screen - ORD NASAL Assessment and Plan Problem List 1. Cellulitis Plan Abscess, suprapubic [place] outpatient therapy. Start patient on vancomycin every 6 hours. Blood cultures along with wound cultures. Consult general surgery for possible I&D. Warm compress, Appropriate wound care. 2. Abscess Plan Abscess, suprapubic with cellulitic changes around. Consult with general surgery as discussed above. Pain control Fluid hydration; normal saline at 150 cc an hour. Nothing by mouth until seen by general surgery. Other than that, can go ahead and eat general diet. Current status: Fair Anticipated discharge date: 24-48 hours Anticipated discharge placement: Home Patient care time: Time spent in chart review, patient interview, physical exam, CPOE, and care documentation: 60-70 minutes Visit to patient today: 1 Complexity of care: Mild E&M Codes Rounding: Obsv-Comp/Moderate/[id number]
--- NOTE | 2017-02-28 16:11 | Progress Note ---
Subjective General Admission History and Physical Examination Admission status: ACU. Observation Patient Name: Daysi Mims Admission Date: 02/28/2017 Primary Care Provider: Coco Chi Attending Physician:Toro Lara M.D. Admitting Physician:Toro Lara MD Code Status: full Code Room: SUBJECTIVE Historian: Patient Reliability: Good Chief Complaint: Supra-pubic History of Present Illness: he patient is a 46-year-old white female with a significant past medical history of exercise-induced asthma. and general seasonal allergies, who presented to [facility] emergency department on the day of admission with continued complaints of pain in the suprapubic region related to previously treated abscess. She reports that overnight she had fevers, low-grade 99.7. She took naproxen 1 with reduction in her fever. Patient said ongoing complains of pain in the suprapubic region since Thursday02/23/2017. Patient states that on that day she noted a small papule in the suprapubic region. This was painful and red. Patient states that she was seen at the [facility] ED on the (02/26/17) when it began to worsen. Patient reported that the lesion was lanced and patient was placed on a oral antibiotic called clindamycin. The pain control was encouraged; patient started on hydrocodone/ acetaminophen. Patient today reported of worsening pain and swelling in the region. Patient has redness in the suprapubic region that extends to the pelvis and inner thigh. Patient also reports a worsening drainage from the original lesion that was treated more than 2 days ago. Patient was seen by [facility] ED who recommended patient be seen by general surgery and also admitted to hospitalist. Secondary to the above, the patient was admitted by Toro Lara M.D. for further evaluation and treatment. PAST MEDICAL HISTORY Illnesses: 1. Exercise-induced asthma 2. Seasonal allergies Allergies: 1. Sulfa drugs 2. Avocado eggs, bananas 2. Seasonal allergies to grass and pollens. Medications: 1. Currently started clindamycin 300 mg 4 times per day for recent abscess formation. 2. Hydrocodone acetaminophen 5 mg to 325 every 6 hours as needed. Surgery: 1. Trigger finger, April 2014 2. Sever toe on the left foot, which was repaired Injuries: 1. Left foot injury Hospitalizations: 1. None FAMILY HISTORY Parents: 1. Father, Sandro, age 61, living with thyroid disease, 2. Mother, Laura age 59; m living diabetic Siblings: 1. Agueda Mcallister age 42, Sundar age 40, Elsy age 38 Children: 1. 3 healthy children Andrew 19 lives at home Ronaldo Ochoa age 29 Janet Ochoa age 26 POA SOCIAL HISTORY 1. Marital Status: 2 years 2. Christianity: None 3. 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 Tobacco: Smoking history 30 years, one half pack per day. Stop smoking. September,. 2. Drugs: None 3. Alcohol: None 4. Caffeine: None HEALTH SUPERVISION Item/Test 1. Vision screen: vision 2. Cholesterol Profile: chol 3. PSA: PSA 4. DOROTHEA: DOROTHEA 5. FOBT: FOBT 6. Blood Glucose: May 2015; [facility] 7. Colonoscopy: colonoscopy 8. History and physical exam: H&P 9. Audiogram: 2016 10. Mammogram: April 2015 [facility] 11. Pap/pelvic exam: April 2015 [facility] IMMUNIZATIONS: Unknown 1. Pneumococcal: Unknown 2. Influenza: Unknown 3. Tetanus: Unknown ADVANCED DIRECTIVES: 1. Living well: None 2. POLST: None 3. Code Status: FULL CODE STATUS 4. 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 Donor card: Donor card yes REVIEW OF SYSTEMS Remarkable for those things stated in the history of present illness and past medical history. ROS Constitutional Fever. Denies: Chills, Sweats. Eyes Denies: Vision Change. Respiratory Denies: SOB w/exertion. Cardiovascular Denies: Palpitations. Musculoskeletal Denies: Back Pain. Skin Other (abscess, suprapubic). Physical Exam Vital Signs / I&Os Vital Signs Date Time Temp Pulse Resp B/P Pulse O2 O2 Flow FiO2 Ox Delivery Rate 02/28 1605 98.4 66 16 111/67 100 Room Air General Appearance Oriented X3, Cooperative, No acute distress HEENT EOMI Lungs Clear to auscultation Cardiovascular Regular rate and rhythm, Normal S1 and S2 Abdomen Soft, No tenderness Extremities No clubbing, No edema Skin abscess, suprapubic with single exit point with drainage, pus. Tenderness around the mons pubis, fluctuance approximately 3 cm superior to the mons into the groin. Edematous changes Suprapubic. , LAB Results Laboratory Tests 02/28 02/28 1145 1145 Chemistry Plasma Sodium (136 - 145 mmol/L) 137 Plasma Potassium (3.5 - 5.1 mmol/L) 4.1 Plasma Chloride (98 - 107 mmol/L) 103 CO2 (Enzymatic) (21 - 32 mmol/L) 29 BUN (7 - 18 mg/dL) 14 Creatinine (0.6 - 1.3 mg/dL) 0.8 Est GFR ( Amer) (mL/min) >60 Est GFR (Non-Af Amer) (mL/min) >60 Glucose (70 - 110 mg/dL) 91 Plasma Calcium (8.5 - 10.1 mg/dL) 8.7 Total Bilirubin (0.0 - 1.0 mg/dL) 0.7 AST (15 - 37 U/L) 15 ALT (12 - 78 U/L) 18 Alkaline Phosphatase (46 - 116 U/L) 67 C-Reactive Protein Pending Total Protein (6.4 - 8.2 g/dL) 7.1 Albumin (3.3 - 5.0 g/dL) 3.4 Hematology WBC (4.5 - 11.5 K/uL) 8.5 RBC (4.00 - 5.20 M/uL) 3.96 Hgb (12.0 - 16.0 gm/dL) 12.1 Hct (36.0 - 46.0 %) 36.6 MCV (80 - 100 fL) 93 MCH (26 - 34 pg) 31 RDW (11.6 - 14.8 %) 13.2 Neut % (Auto) (50 - 75 %) 75.2 Lymph % (Auto) (25 - 40 %) 14.4 [place] % (Auto) (3 - 14 %) 7.1 Eos % (Auto) (0 - 4 %) 2.7 Baso % (Auto) (0 - 2 %) 0.6 Plt Count, EDTA (150 - 400 K/uL) 284 PUBS MCHC (31 - 37 g/dL) 33 Microbiology Date/Time Procedure - Status Source Growth 02/28 1544 Blood Culture - RECD BLOOD 02/28 1543 Superficial Wound Culture - ORD DRAINAGE 02/28 1543 Gram Stain - ORD DRAINAGE 02/28 1543 Gram Stain - ORD MISC 02/28 1540 Blood Culture - RECD BLOOD 02/28 UNK MRSA Screen - ORD NASAL Assessment and Plan Problem List 1. Cellulitis Plan Abscess, suprapubic [place] outpatient therapy. Start patient on vancomycin every 6 hours. Blood cultures along with wound cultures. Consult general surgery for possible I&D. Warm compress, Appropriate wound care. 2. Abscess Plan Abscess, suprapubic with cellulitic changes around. Consult with general surgery as discussed above. Pain control Fluid hydration; normal saline at 150 cc an hour. Nothing by mouth until seen by general surgery. Other than that, can go ahead and eat general diet. Current status: Fair Anticipated discharge date: 24-48 hours Anticipated discharge placement: Home Patient care time: Time spent in chart review, patient interview, physical exam, CPOE, and care documentation: 60-70 minutes Visit to patient today: 1 Complexity of care: Mild E&M Codes Rounding: Obsv-Comp/Moderate/[id number]
[2017-02-28] MEDS ORDERED: ALBUTEROL HFA60 DOSE IN (16:33)
[2017-02-28] MEDS ORDERED: CLEOCIN300 MG PO (16:35)
[2017-02-28] MEDS ORDERED: FLONASE AL50 MCG/ACT IN (16:36)
[2017-02-28] MEDS ORDERED: CLARITIN5 MG PO (16:37)
[2017-02-28] MEDS ORDERED: NORCO1 TA1 PO (16:38)
[2017-02-28] MEDS ORDERED: DIPHENHYDRAMINE25 M1 PO (16:39)
[2017-02-28 18:36] VITALS: BP 102/60
[2017-02-28 22:30] VITALS: BP 102/60
[2017-03-01 02:20] VITALS: BP 93/55
[2017-03-01 07:06] VITALS: BP 102/60
[2017-03-01 10:55] VITALS: BP 114/60
--- NOTE | 2017-03-01 13:53 | CONSULTATION REPORT ---
DATE OF CONSULTATION: 03/01/2017 REQUESTING PHYSICIAN: Ortega Guajardo MD CHIEF COMPLAINT: 1. Infection of pubic region HISTORY OF PRESENT ILLNESS: The patient is a 46-year-old woman who was seen in the emergency department 2 days previously with the finding of a small subcutaneous abscess and localized infection. She was treated with localized drainage and started on oral clindamycin 300 mg q.i.d. Following that emergency room visit, the patient presented again to the emergency room yesterday complaining of lack of response to treatment, in that she was still having hard swelling and pain at the side of the drainage. She was admitted for treatment with IV antibiotics. MEDICAL/SURGICAL HISTORY: Medical history of exertional asthma and seasonal allergies. Past surgery: Trigger finger surgery in 2013 and left toe injury, which was repaired in the past. MEDICATIONS: 1. Clindamycin. 2. Vicodin. ALLERGIES: 1. SULFA. 2. AVOCADO. 3. EGGS. 4. BANANAS. 5. GRASS. 6. POLLENS. SOCIAL HISTORY: The patient has 3 children, ages 19 through 29. The patient has been for about 2 years. 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 She smokes 1/2 pack per day, but quit smoking in 09/2015. Does not take drugs or alcohol. FAMILY HISTORY: Father is 61 with thyroid disease. Mother is 59 and a diabetic. REVIEW OF SYSTEMS: A multipoint review of systems was obtained on admission. The patient denies other unrelated complaints such as dyspnea, hemoptysis, gastrointestinal problems, vomiting, diarrhea, hematemesis, hematochezia, bone or joint problems, sinus, vision, hearing problems. She has had a previous colonoscopy. She received her preventive care at [facility] in [place]. PHYSICAL EXAMINATION: GENERAL: The patient was alert and cooperative. VITAL SIGNS: Temperature 98.4, respirations 20, pulse rate of 86, blood pressure 114/60, room air sat 100%. HEENT: Ears and nose without gross external lesions. Eyes are equal, anicteric. NECK: Without thyromegaly or bruit. CHEST: Clear to auscultation. HEART: Regular, without murmur. ABDOMEN: Nontender. EXTREMITIES: Symmetric, and she moves without restriction. SKIN: On the lower mons area, there is a small incision which is currently not draining much. It has a little bit of crust on it. There is no palpable fluctuance. There is some induration extending about 1 cm or 2 from this incision. This area is tender to her. There is no crepitus. There is no erythema overlying. LAB/IMAGING: The lab tests on admission showed a white count of 8.5, and today it is 7.4; hemoglobin and hematocrit today of 10.4 and 31.5. The chemistries are normal, with a slightly low chloride and a slightly low calcium. C-reactive protein was elevated at 4.6. Urinalysis was negative. test was negative. Review of her microbiology studies showed the only studies in the computer are dated from 02/28/2017, which is yesterday. She had a number of tests, including a MRSA screen, which is currently pending. The previous drainage from the day or two before does not seem to show any bacteriology results in the chart. IMPRESSION: 1. Subcutaneous abscess/folliculitis with secondary cellulitis PLAN: IV antibiotics, pending results of culture, with coverage of MRSA at the present time with vancomycin. If this patient responds in the next day or so, then switching to oral coverage if available will be done, and the patient will be managed as an outpatient. At the present time, there is not much there to do surgery on or to drain or debride. I would recommend warm soaks and a moist dressing to promote drainage.
--- NOTE | 2017-03-01 14:38 | Progress Note ---
Subjective General Patient seen and examined. Patient has no acute events overnight. Patient's abscess is improving. We'll continue monitor Constitutional Denies: Fever, Chills, Sweats, Weakness, Malaise, Other. Eyes Denies: Pain, Vision Change, Conjunctival Inflammation, Eyelid Inflammation, Redness, Other. ENT Denies: Ear Pain, Ear Discharge, Nose Pain, Nasal Discharge, Nasal Congestion, Mouth Pain, Mouth Swelling, Throat Pain, Throat Swelling, Other. Respiratory Denies: Cough, Dry, SOB w/exertion, Wheezing, Hemoptysis, Pleuritic Pain, Sputum , Other. Cardiovascular Denies: Chest Pain, Palpitations, Orthopnea, PND, Edema, Light-headedness, Other. Gastrointestinal Denies: Nausea, Vomiting, Abdominal Pain, Diarrhea, Constipation, Melena, Hematochezia, Other. Genitourinary Denies: Dysuria, Frequency, Incontinence, Hematuria, Retention, Other. Musculoskeletal Denies: Neck Pain, Shoulder Pain, Arm Pain, Back Pain, Hand Pain, Leg Pain, Foot Pain, Other. Skin Denies: Rash, Lesions, Jaundice, Bruising, Other. Neurological Denies: Weakness, Numbness, Incoordination, Change in speech, Confusion, Seizures, Other. Physical Exam Vital Signs / I&Os Vital Signs Date Time Temp Pulse Resp B/P Pulse O2 O2 Flow FiO2 Ox Delivery Rate 03/01 1055 98.4 86 20 114/60 100 Room Air 03/01 0706 98.2 72 21 102/60 100 Room Air 03/01 0220 98.2 83 17 93/55 98 Room Air 02/28 2230 97.9 81 16 102/60 100 Room Air 02/28 2030 Room Air 02/28 1836 97.9 62 102/60 99 Room Air 02/28 1605 98.4 66 16 111/67 100 Room Air I&O 02/28 0800 02/28 1600 03/01 0000 Intake Total Output Total 200 Balance -200 General Appearance Alert, Oriented X3, No acute distress HEENT Atraumatic, PERRLA, Moist mucous membranes Lungs Clear to auscultation Neck No JVD, No masses Cardiovascular Regular rate and rhythm, Normal S1 and S2, No murmurs, gallops, rubs Abdomen Soft, No tenderness Extremities No clubbing, No edema, Normal pulses Skin No Breakdown Neurological Normal tone, Sensation intact, Cranial nerves intact, No lateralizing signs Psych/Mental Status Mood normal LAB Results Laboratory Tests 02/28 0770 Chemistry Plasma Sodium (136 - 145 mmol/L) 144 Plasma Potassium (3.5 - 5.1 mmol/L) 3.8 Plasma Chloride (98 - 107 mmol/L) 110 CO2 (Enzymatic) (21 - 32 mmol/L) 26 BUN (7 - 18 mg/dL) 13 Creatinine (0.6 - 1.3 mg/dL) 0.8 Est GFR ( Amer) (mL/min) >60 Est GFR (Non-Af Amer) (mL/min) >60 Glucose (70 - 110 mg/dL) 108 Plasma Calcium (8.5 - 10.1 mg/dL) 7.5 Hematology WBC (4.5 - 11.5 K/uL) 7.4 RBC (4.00 - 5.20 M/uL) 3.41 Hgb (12.0 - 16.0 gm/dL) 10.4 Hct (36.0 - 46.0 %) 31.5 MCV (80 - 100 fL) 92 MCH (26 - 34 pg) 31 RDW (11.6 - 14.8 %) 13.2 Neut % (Auto) (50 - 75 %) 57.8 Lymph % (Auto) (25 - 40 %) 29.4 [place] % (Auto) (3 - 14 %) 7.6 Eos % (Auto) (0 - 4 %) 4.5 Baso % (Auto) (0 - 2 %) 0.7 Plt Count, EDTA (150 - 400 K/uL) 254 PUBS MCHC (31 - 37 g/dL) 33 Urines Urine Color YELLOW Urine Appearance CLEAR Urine pH (5.0 - 8.0) 6.0 Ur Specific [place] (1.010 - 1.030) 1.025 Urine Protein (NEGATIVE) NEGATIVE Urine Ketones (NEGATIVE) NEGATIVE Urine Blood (NEGATIVE) NEGATIVE Urine Nitrite (NEGATIVE) NEGATIVE Urine Bilirubin (NEGATIVE) NEGATIVE Urine Urobilinogen (0.2 - 1.0 EU/dL) 0.2 Ur Leukocyte Esterase (NEGATIVE) NEGATIVE Urine RBC (0 - 1 rbc/hpf) 0-1 Urine WBC (0 - 1 wbc/hpf) 0-1 Ur Epithelial Cells (0 - 5 EPI/hpf) 0-1 Urine Bacteria (NONE SEEN) NONE SEEN Urine Glucose (NEGATIVE) NEGATIVE Urine Test NEGATIVE Urine Comment CULT NOT INDICATED Microbiology Date/Time Procedure - Status Source Growth 02/28 1600 MRSA Screen - RECD NASAL 02/28 1544 Blood Culture - RECD BLOOD 02/28 1543 Superficial Wound Culture - COLB DRAINAGE 02/28 1543 Gram Stain - COLB DRAINAGE 02/28 1543 Gram Stain - COLB MISC 02/28 1540 Blood Culture - RECD BLOOD Assessment and Plan Problem List 1. Abscess Plan Patient has an abscess on her mons Currently being treated with vancomycin Currently the abscess is drained and is just very indurated We'll continue to monitor a daily basis Once patient starts to improve we'll discuss about oral antibiotic therapy and possible discharge 2. Cellulitis Plan Skin over mons is very indurated We'll continue with antibiotics No need for surgical intervention at the moment 3. Asthma, exercise induced Plan History of asthma exacerbation during exercise Currently patient is asymptomatic without any complaints
[2017-03-01 14:42] VITALS: BP 105/60
[2017-03-01 18:20] VITALS: BP 95/67
[2017-03-01 22:08] VITALS: BP 95/49
[2017-03-02 02:40] VITALS: BP 82/46
[2017-03-02 08:47] VITALS: BP 115/63
--- NOTE | 2017-03-02 09:10 | Progress Note ---
Subjective General Feeling well today. Abscess getting smaller and less painful. No fevers/ chills. Eating well. No diarrhea/constipation. No abd pain. No chest pain or SOB or cough. Physical Exam Vital Signs / I&Os Vital Signs Date Time Temp Pulse Resp B/P Pulse O2 O2 Flow FiO2 Ox Delivery Rate 03/02 0847 36.8 80 20 115/63 99 Room Air 03/02 0240 36.8 62 18 82/46 96 Room Air 03/01 2208 36.7 70 18 95/49 97 Room Air 03/01 1820 36.8 70 18 95/67 97 Room Air 03/01 1442 36.7 72 20 105/60 100 Room Air 03/01 1055 36.9 86 20 114/60 100 Room Air I&O 03/02 0000 03/01 1600 03/01 0800 Intake Total 360 2430 Output Total 800 425 Balance -440 2004 General Appearance Alert, Oriented X3, No acute distress Cardiovascular Regular rate and rhythm, Normal S1 and S2, No murmurs, gallops, rubs Abdomen Normal bowel sounds, Soft, No tenderness Pelvic abscess 3 cm x 4.5 cm on mons. Extremities No edema Assessment and Plan Problem List 1. Abscess Plan Improving per patient. Still awaiting culture results. Will monitor x 24 hrs longer for culture results and verify that it is improving. SCD's and ambulation for DVT ppx.
[2017-03-02 13:28] VITALS: BP 101/56
[2017-03-02 18:32] VITALS: BP 113/66
[2017-03-02 22:52] VITALS: BP 98/51
[2017-03-03 02:01] VITALS: BP 100/57
[2017-03-03 06:12] VITALS: BP 88/53
[2017-03-03 06:44] VITALS: BP 94/61
[2017-03-03] MEDS ORDERED: CIPRO500 MG PO (07:42)
--- NOTE | 2017-03-03 07:44 | Provider's Discharge Care Plan ---
Problem, Goal, Plan Problem List 1. Abscess Goals: Improved health/wellness, Therapeutic intervention Instructions: Follow up as directed, Take meds as directed
--- NOTE | 2017-03-03 07:44 | Provider's Discharge Care Plan ---
Problem, Goal, Plan Problem List 1. Abscess Goals: Improved health/wellness, Therapeutic intervention Instructions: Follow up as directed, Take meds as directed
== END 2017-03-03 10:25 | disposition home or self-care (01) ==
LOC: ED SRH 10:05 → TRANS SRH 14:21 → CC SRH 16:12 → ACUTE2 SRH 03-02 21:37
PROVIDERS: ADMIT Family Medicine
DX: L02.211 Cutaneous abscess of abdominal wall (principal); L03.311 Cellulitis of abdominal wall; J45.990 Exercise induced bronchospasm; Z87.891 Personal history of nicotine dependence
CPT/HCPCS: 29230; 29244; 29247; 29250; 29263; 90004; 90047; 90065; 90070; 90074; 90100; 90131; 90309; 91583; 91585; 91672; 92132; 93070; 95059